=== PATIENT | male | born 1960 | race Caucasian/White ===

== ENCOUNTER 2020-06-21 10:38 | Outpatient (CLI) | payer OTHER, SELFPAY ==
[2020-06-21 11:50] LABS: SARS-CoV-2 Ag Negative (Negative)
== END 2020-06-21 10:39 | disposition home or self-care (01) ==
PROVIDERS: PCP Family Medicine; Visit Provider Family Medicine
DX: R05 Cough (principal); Z20.822 Contact with and (suspected) exposure to COVID-19
CPT/HCPCS: 87426; C9803

== ENCOUNTER 2020-06-24 13:59 | Outpatient (CLI) | payer OTHER, SELFPAY ==
--- NOTE | ~2020-06-24 | XR_ITS ---
XR chest 2V 06/24/2020 14:40 Indication: Cough. Pneumonia. Procedure: 2 view chest Comparison: 03/31/2017 Findings: Patchy bilateral airspace disease, right greater than left, compatible with pneumonia. Hear t size normal. The lungs are hyperinflated which is consistent with, but not diagnostic of chronic ob structive pulmonary disease. No pleural effusion or pneumothorax. No acute osseous abnormality. Impression: 1: Patchy bilateral airspace disease, compatible with pneumonia. Reviewed, dictated and finalized at location A. [employer] Impression: 1: Patchy bilateral airspace disease, compatible with pneumonia.
[2020-06-24 15:01] LABS: SARS-CoV-2 Ag Negative (Negative)
[2020-06-27 12:59] LABS: SARS-CoV-2 RNA PCR Positive
== END 2020-06-24 14:00 | disposition home or self-care (01) ==
PROVIDERS: PCP Family Medicine; Visit Provider Family Medicine
DX: U07.1 COVID-19 (principal); R05 Cough
CPT/HCPCS: 71046; 87426; C9803; U0003; U0005

== ENCOUNTER 2023-08-09 11:56 | Outpatient (CLI) | payer OTHER, SELFPAY ==
--- NOTE | ~2023-08-09 | XR_ITS ---
XR chest 2V 08/09/2023 12:08 Indication: Subacute cough for 2 weeks Procedure: 2 view chest Comparison: 06/24/2020 and 03/31/2017 Findings: Persistent ill-defined opacities of the right mid lung unchanged. Heart size normal. No acu te focal pneumonia, pleural effusion or pneumothorax. No acute osseous abnormality. Impression: 1: Stable ill-defined opacities right midlung which may reflect scarring from previous infectious/inf lammatory process or pleural thickening. Consider correlation with CT chest to exclude underlying par enchymal nodule. Reviewed, dictated and finalized at location B. Impression: 1: Stable ill-defined opacities right midlung which may reflect scarring from p revious infectious/inflammatory process or pleural thickening. Consider correla tion with CT chest to exclude underlying parenchymal nodule.
== END 2023-08-09 11:57 | disposition home or self-care (01) ==
LOC: CHSIMG 11:58
PROVIDERS: PCP Family Medicine; Visit Provider Family Medicine
DX: R05.2 Subacute cough (principal); R91.8 Other nonspecific abnormal finding of lung field
CPT/HCPCS: 71046

== ENCOUNTER 2023-08-13 09:49 | Outpatient (CLI) | payer MEDICARE, OTHER, SELFPAY ==
--- NOTE | ~2023-08-13 | CT_ITS ---
CT Scan of the Chest without Contrast: Clinical Indication: Pleural thickening, cough Technique: Contiguous sections were acquired throughout the chest without intravenous contrast. Dose reduction technique was used on this scan by utilizing automated exposure control and iterative recon struction technique. The dose-length product (DLP) was 530.49 mGy-cm. Findings: There is no evidence of any significant mediastinal, hilar or axillary lymphadenopathy. Coronary anastacia ry calcifications are present. 7 mm left upper lobe pulmonary nodule present (axial image 61).. There is focal pleural thickening at the lingula, nonspecific. The lungs are clear. No pulmonary nodules or infiltrates are noted. Images through the upper abdomen reveal no abnormalities. Impression: 7 mm left upper lobe pulmonary nodule. According to Fleischner Society criteria, for a low-risk patie nt, recommend follow-up CT scan in 6-12 months, then consider additional 18-[address] For a high-r isk patient, follow-up CT scans at both 6-12 months and 18-24 months are recommended. Focal pleural thickening lingular region, nonspecific. Reviewed, dictated and finalized at [facility]. Impression: 7 mm left upper lobe pulmonary nodule. According to Fleischner Society criteria , for a low-risk patient, recommend follow-up CT scan in 6-12 months, then cons ider additional 18-[address] For a high-risk patient, follow-up CT scans at both 6-12 months and 18-24 months are recommended. Focal pleural thickening lingular region, nonspecific.
== END 2023-08-13 09:50 | disposition home or self-care (01) ==
LOC: CHSIMG 09:58
PROVIDERS: PCP Family Medicine; Visit Provider Family Medicine
DX: J92.9 Pleural plaque without asbestos (principal); R91.8 Other nonspecific abnormal finding of lung field
CPT/HCPCS: 71250

== ENCOUNTER 2023-10-24 15:04 | Outpatient (CLI) | payer MEDICARE, OTHER, SELFPAY ==
--- NOTE | ~2023-10-24 | XR_ITS ---
EXAMINATION: XR chest 2V 10/24/2023 15:23 INDICATION: 2 view chest PROCEDURE: 08/08/2013 COMPARISON: 08/09/2023 FINDINGS: The lungs are clear. The cardiomediastinal silhouette is within normal limits. There are no pleural effusions. There is no pneumothorax suspected. IMPRESSION: 1: NO ACUTE CARDIOPULMONARY DISEASE. Reviewed, dictated and finalized at location B.
== END 2023-10-24 15:05 | disposition home or self-care (01) ==
PROVIDERS: PCP Family Medicine; Visit Provider Family Medicine
DX: J21.9 Acute bronchiolitis, unspecified (principal)
CPT/HCPCS: 71046

== ENCOUNTER 2024-02-20 08:57 | Outpatient (CLI) | payer MEDICARE, OTHER, SELFPAY ==
--- NOTE | ~2024-02-20 | CT_ITS ---
CT Scan of the Chest without Contrast: Clinical Indication: Pulmonary nodule Technique: Contiguous sections were acquired throughout the chest without intravenous contrast. Dose reduction technique was used on this scan by utilizing automated exposure control and iterative recon struction technique. The dose-length product (DLP) was 461.20 mGy-cm. COMPARISON: 08/13/2023 Findings: There is no evidence of any significant mediastinal, hilar or axillary lymphadenopathy. The mediastin al soft tissues appear normal. There is no evidence of pleural or pericardial effusion. Stable left upper lobe peripheral nodule measuring 7 mm in diameter. Images through the upper abdomen reveal no abnormalities. Impression: Stable 7 mm left upper lobe pulmonary nodule. Reviewed, dictated and finalized at location . [employer] SPECIALIST Impression: Stable 7 mm left upper lobe pulmonary nodule.
== END 2024-02-20 08:58 | disposition home or self-care (01) ==
LOC: CHSIMG 08:58
PROVIDERS: PCP Family Medicine; Visit Provider Family Medicine
DX: R91.1 Solitary pulmonary nodule (principal)
CPT/HCPCS: 71250

== ENCOUNTER 2024-10-07 09:06 | Outpatient (CLI) | payer MEDICARE, OTHER, SELFPAY ==
--- NOTE | ~2024-10-07 | XR_ITS ---
XR ribs RT 2V w CXR 2V Ordering provider: Cruzito Dubois MD History: . 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 Comparison: None. FINDINGS: BONES: Healing fractures in the right fifth, sixth and seventh ribs. MEDIASTINUM: The cardiac silhouette is not enlarged. LUNGS: No infiltrates, effusions or pneumothorax. OTHER: No free air under the diaphragm. Degenerative changes of the spine. IMPRESSION: 1. Healing fractures in the right fifth, sixth and seventh ribs Note: subtle/nondisplaced rib fractu res can be occult on plain films and if there is continued clinical suspicion for rib fracture, recom mend follow up CT chest). 2. No acute cardiopulmonary findings. Reviewed, dictated and finalized at location A. IMPRESSION: 1. Healing fractures in the right fifth, sixth and seventh ribs Note: subtle/n ondisplaced rib fractures can be occult on plain films and if there is continue d clinical suspicion for rib fracture, recommend follow up CT chest). 2. No acute cardiopulmonary findings.
== END 2024-10-07 09:07 | disposition home or self-care (01) ==
LOC: CHSIMG 09:09
PROVIDERS: PCP Family Medicine; Visit Provider Family Medicine
DX: R07.89 Other chest pain (principal); S22.41XD Multiple fractures of ribs, right side, subsequent encounter for fracture with routine healing
CPT/HCPCS: 71046; 71100